=== PATIENT | female | born 1940 | race Caucasian/White ===

== ENCOUNTER 2017-05-30 09:06 | Emergency (ER) | payer MEDICARE ==
[2017-05-30 09:11] VITALS: RESP 18
[2017-05-30] MEDS ORDERED: SODIUM CHLORIDE 0.9% 500 ML IV STA (09:22)
--- NOTE | 2017-05-30 09:25 | ED ---
General Adult HPI - General Chief complaint: Abdominal Pain Stated complaint: gallbladder pain Time Seen by Provider: 05/30/17 09:13 Source: patient, RN notes reviewed Mode of arrival: ambulatory Limitations: no limitations - History of Present Illness Initial comments: Patient 76-year-old female presenting to the emergency room today with a chief complaint of right-sided abdominal/chest pain 2 days. Patient states that showed on night. She describes it as a sharp pain. States that she had some diarrhea. States appetite somewhat decreased noticed that yesterday pain was worse after eating. Also admits that it's worse with certain movements. Patient denies any injury or trauma to the area. Currently rates it a 08/02. Patient states is worried about her gallbladder. She denies any other complaints or symptoms. Patient denies any recent fever, chills, shortness of breath, back pain, numbness or tingling, dysuria or hematuria, constipation or diarrhea, headaches or visual changes, or any other complaints. - Related Data Home Medications Medication Instructions Recorded Confirmed Calcium Carbonate/Vitamin D3 1 tab PO DAILY 05/30/17 05/30/17 [Calcium 500-Vit D3 200 Tablet] Diclofenac Sodium [Voltaren] 100 mg PO DAILY 05/30/17 05/30/17 Allergies Allergy/AdvReac Type Severity Reaction Status Date / Time No Known Allergies Allergy Verified 05/30/17 12:50 Review of Systems ROS Statement: Those systems with pertinent positive or pertinent negative responses have been documented in the HPI. ROS Other: All systems not noted in ROS Statement are negative. Past Medical History Past Medical History: No Reported History History of Any Multi-Drug Resistant Organisms: None Reported Past Surgical History: Appendectomy, Hysterectomy, Joint Replacement, Orthopedic Surgery Past Psychological History: No Psychological Hx Reported Smoking Status: Former smoker Past Alcohol Use History: Occasional Past Drug Use History: None Reported General Exam - General Exam Comments Initial Comments: General: The patient is awake and alert, in no distress, and does not appear acutely ill. Eye: Pupils are equal, round and reactive to light, extra-ocular movements are intact. No nystagmus. There is normal conjunctiva bilaterally. No signs of icterus. Ears, nose, mouth and throat: There are moist mucous membranes and no oral lesions. Neck: The neck is supple, there is no tenderness or JVD. Cardiovascular: There is a regular rate and rhythm. No murmur, rub or gallop is appreciated. Tender to the anterior right-sided chest wall. Respiratory: Lungs are clear to auscultation, respirations are non-labored, breath sounds are equal. No wheezes, stridor, rales, or rhonchi. Gastrointestinal: Soft, non-distended, non-tender abdomen without masses or organomegaly noted. There is no rebound or guarding present. No CVA tenderness. Bowel sounds are unremarkable. Musculoskeletal: Normal ROM, no tenderness. Strength 5/5. Sensation intact. Pulses equal bilaterally 2+. Neurological: A&O x 3. CN II-XII intact, There are no obvious motor or sensory deficits. Coordination appears grossly intact. Speech is normal. Skin: Skin is warm and dry and no rashes or lesions are noted. Psychiatric: Cooperative, appropriate mood & affect, normal judgment. Limitations: no limitations Course Vital Signs 05/30/17 05/30/17 05/30/17 09:07 12:00 14:00 Temperature 97.5 F L 97.5 F L 97.8 F Pulse Rate 68 68 57 L Respiratory 18 18 18 Rate Blood Pressure 188/76 148/72 135/74 O2 Sat by Pulse 99 99 99 Oximetry EKG Findings - EKG Comments: EKG Findings:: EKG performed at 0924: Shows normal sinus rhythm at 71 beats per minute. MO interval 148. QRS 82. QT/QTc 430/467. No acute ST changes Medical Decision Making - Medical Decision Making Patient's cardiac enzymes were repeated here the emergency room and are negative. Case discussed with attending physician Dr. Chirinos who did discuss the case with Dr. Ruth covering for Dr. Benítez recommended repeating cardiac enzymes and negative patient could be discharged home. Patient will be discharged and advised follow-up in the office over the next 2 days. Advised return if any symptoms increase or worsen. She states understanding and is in agreement. - Lab Data Result diagrams: 05/30/17 09:45 05/30/17 09:45 Lab Results 05/30/17 05/30/17 05/30/17 Range/Units 09:45 09:45 09:45 WBC 8.9 (3.8-10.6) k/uL RBC 4.54 (3.80-5.40) m/uL Hgb 13.5 (11.4-16.0) gm/dL Hct 40.2 (34.0-46.0) % MCV 88.6 (80.0-100.0) fL MCH 29.6 (25.0-35.0) pg MCHC 33.5 (31.0-37.0) g/dL RDW 14.5 (11.5-15.5) % Plt Count 296 (150-450) k/uL Neutrophils % 72 % Lymphocytes % 17 % Monocytes % 6 % Eosinophils % 3 % Basophils % 1 % Neutrophils # 6.4 (1.3-7.7) k/uL Lymphocytes # 1.5 (1.0-4.8) k/uL Monocytes # 0.5 (0-1.0) k/uL Eosinophils # 0.3 (0-0.7) k/uL Basophils # 0.0 (0-0.2) k/uL PT (9.0-12.0) sec INR (<1.2) APTT (22.0-30.0) sec Sodium 140 (137-145) mmol/L Potassium 4.2 (3.5-5.1) mmol/L Chloride 104 (98-107) mmol/L Carbon Dioxide 26 (22-30) mmol/L Anion Gap 10 mmol/L BUN 29 H (7-17) mg/dL Creatinine 0.69 (0.52-1.04) mg/dL Est GFR (CKD-EPI)AfAm >90 (>60 ml/min/1.73 sqM) Est GFR (CKD-EPI)NonAf 84 (>60 ml/min/1.73 sqM) Glucose 90 (74-99) mg/dL Calcium 10.1 (8.4-10.2) mg/dL Total Bilirubin 0.5 (0.2-1.3) mg/dL AST 17 (14-36) U/L ALT 16 (9-52) U/L Alkaline Phosphatase 78 (38-126) U/L Total Creatine Kinase 37 (30-135) U/L CK-MB (CK-2) 0.8 (0.0-2.4) ng/mL CK-MB (CK-2) Rel Index 2.2 Troponin I <0.012 (0.000-0.034) ng/mL Total Protein 6.4 (6.3-8.2) g/dL Albumin 3.8 (3.5-5.0) g/dL Amylase 70 (30-110) U/L Lipase 136 (23-300) U/L Urine Color Urine Appearance (Clear) Urine pH (5.0-8.0) Ur Specific [place] (1.001-1.035) Urine Protein (Negative) Urine Glucose (UA) (Negative) Urine Ketones (Negative) Urine Blood (Negative) Urine Nitrite (Negative) Urine Bilirubin (Negative) Urine Urobilinogen (<2.0) mg/dL Ur Leukocyte Esterase (Negative) Urine RBC (0-5) /hpf Urine WBC (0-5) /hpf Ur Squamous Epith Cells (0-4) /hpf 05/30/17 05/30/17 05/30/17 Range/Units 09:45 11:28 13:23 WBC (3.8-10.6) k/uL RBC (3.80-5.40) m/uL Hgb (11.4-16.0) gm/dL Hct (34.0-46.0) % MCV (80.0-100.0) fL MCH (25.0-35.0) pg MCHC (31.0-37.0) g/dL RDW (11.5-15.5) % Plt Count (150-450) k/uL Neutrophils % % Lymphocytes % % Monocytes % % Eosinophils % % Basophils % % Neutrophils # (1.3-7.7) k/uL Lymphocytes # (1.0-4.8) k/uL Monocytes # (0-1.0) k/uL Eosinophils # (0-0.7) k/uL Basophils # (0-0.2) k/uL PT 9.7 (9.0-12.0) sec INR 1.0 (<1.2) APTT 24.3 (22.0-30.0) sec Sodium (137-145) mmol/L Potassium (3.5-5.1) mmol/L Chloride (98-107) mmol/L Carbon Dioxide (22-30) mmol/L Anion Gap mmol/L BUN (7-17) mg/dL Creatinine (0.52-1.04) mg/dL Est GFR (CKD-EPI)AfAm (>60 ml/min/1.73 sqM) Est GFR (CKD-EPI)NonAf (>60 ml/min/1.73 sqM) Glucose (74-99) mg/dL Calcium (8.4-10.2) mg/dL Total Bilirubin (0.2-1.3) mg/dL AST (14-36) U/L ALT (9-52) U/L Alkaline Phosphatase (38-126) U/L Total Creatine Kinase 32 (30-135) U/L CK-MB (CK-2) 0.6 (0.0-2.4) ng/mL CK-MB (CK-2) Rel Index 1.9 Troponin I <0.012 (0.000-0.034) ng/mL Total Protein (6.3-8.2) g/dL Albumin (3.5-5.0) g/dL Amylase (30-110) U/L Lipase (23-300) U/L Urine Color Light Yellow Urine Appearance Clear (Clear) Urine pH 7.0 (5.0-8.0) Ur Specific [place] 1.012 (1.001-1.035) Urine Protein Negative (Negative) Urine Glucose (UA) Negative (Negative) Urine Ketones Negative (Negative) Urine Blood Negative (Negative) Urine Nitrite Negative (Negative) Urine Bilirubin Negative (Negative) Urine Urobilinogen <2.0 (<2.0) mg/dL Ur Leukocyte Esterase Moderate H (Negative) Urine RBC 1 (0-5) /hpf Urine WBC 3 (0-5) /hpf Ur Squamous Epith Cells 2 (0-4) /hpf Disposition Clinical Impression: Chest wall pain Disposition: HOME SELF-CARE Condition: Good Instructions: Chest Pain (ED) Additional Instructions: Please follow-up with the family physician over the next 2 days. Please return here to the emergency room if any symptoms increase worsen or for any other concerns. Referrals: Gallo Benítez MD [Primary Care Provider] - 1-2 days Time of Disposition: 14:50
[2017-05-30 10:12] LABS: Basophils % (A) 1 %; Eosinophils # (A) 0.3 k/uL (0-0.7); Eosinophils % (A) 3 %; HCT 40.2 % (34.0-46.0); HGB 13.5 gm/dL (11.4-16.0); Lymphocytes # (A) 1.5 k/uL (1.0-4.8); Lymphocytes % (A) 17 %; MCH 29.6 pg (25.0-35.0); MCHC 33.5 g/dL (31.0-37.0); MCV 88.6 fL (80.0-100.0); Mean Platelet Volume 7.1; Monocytes # (A) 0.5 k/uL (0-1.0); Monocytes % (A) 6 %; Neutrophils # (A) 6.4 k/uL (1.3-7.7); Neutrophils % (A) 72 %; Platelet Count 296 k/uL (150-450); RBC 4.54 m/uL (3.80-5.40); RDW 14.5 % (11.5-15.5); WBC 8.9 k/uL (3.8-10.6)
[2017-05-30 10:21] LABS: Partial Thromboplastin Time 24.3 sec (22.0-30.0); Prothrombin Time 9.7 sec (9.0-12.0)
[2017-05-30 10:38] LABS: ALT 16 U/L (9-52); AST 17 U/L (14-36); Albumin 3.8 g/dL (3.5-5.0); Alkaline Phosphatase 78 U/L (38-126); Amylase 70 U/L (30-110); Anion Gap 10 mmol/L; Blood Urea Nitrogen 29 mg/dL (7-17); Calcium 10.1 mg/dL (8.4-10.2); Carbon Dioxide 26 mmol/L (22-30); Chloride 104 mmol/L (98-107); Glucose 90 mg/dL (74-99); Lipase 136 U/L (23-300); Potassium 4.2 mmol/L (3.5-5.1); Sodium 140 mmol/L (137-145); Total Bilirubin 0.5 mg/dL (0.2-1.3); Total Protein 6.4 g/dL (6.3-8.2)
[2017-05-30 10:40] LABS: Creatine Kinase 37 U/L (30-135)
[2017-05-30 10:52] LABS: Creatine Kinase MB 0.8 ng/mL (0.0-2.4); Troponin I <0.012 ng/mL (0.000-0.034)
--- NOTE | 2017-05-30 11:02 | XR ---
EXAMINATION TYPE: XR chest 2V DATE OF EXAM: 05/30/2017 HISTORY: pain. REFERENCE: Previous study dated 07/11/2014. FINDINGS: The lungs are clear. Pleural spaces are clear. Heart size is upper limits of normal. There is a hiatal hernia present behind the heart. IMPRESSION: 1. NO ACUTE INTRATHORACIC ABNORMALITY. 2. HIATAL HERNIA.
[2017-05-30 11:43] LABS: Appearance,Urine Clear (Clear); Bilirubin,Urine Negative (Negative); Blood,Urine Negative (Negative); Color,Urine Light Yellow; Glucose,Urine (UA) Negative (Negative); Ketones,Urine Negative (Negative); Leukocyte Esterase,Urine Moderate (Negative); Nitrite,Urine Negative (Negative); Protein,Urine Negative (Negative); RBC,Urine 1 /hpf (0-5); Specific Gravity,Urine 1.012 (1.001-1.035); Squamous Epithelial Cell,Urine 2 /hpf (0-4); Urobilinogen,Urine <2.0 mg/dL (<2.0); WBC,Urine 3 /hpf (0-5)
--- NOTE | 2017-05-30 11:59 | US ---
EXAMINATION TYPE: US abdomen limited DATE OF EXAM: 05/30/2017 COMPARISON: NONE CLINICAL HISTORY: Pain. Epigastric pain for 2 days. Nausea and diarrhea EXAM MEASUREMENTS: Liver Length: 15.1 cm Gallbladder Wall: 0.3 cm CBD: 0.5 cm Right Kidney: 8.8 x 3.8 x 5.0 cm Pancreas: Tail obscured by overlying bowel gas Liver: 2 cystic areas noted, largest = 0.9cm Gallbladder: no evidence of stones Evidence for sonographic Wilson's sign: no CBD: wnl Right Kidney: lower limits of normal in size Limited views of the pancreas are unremarkable. The liver is normal in size. There are 2 cystic lesions noted within the right lobe of the liver. The largest measures 9 mm. The gallbladder is unremarkable. The gallbladder wall measures 3 mm. The distal common hepatic duct m easures 5 mm. There is no sonographic Wilson's sign. Right kidney is somewhat small. There is no evidence of hydronephrosis. The intrahepatic IVC is normal. IMPRESSION: 1. CYSTIC CHANGE WITHIN THE LIVER. 2. THE RIGHT KIDNEY IS SOMEWHAT SMALL. THIS MAY REFLECT PATIENT SIZE.
[2017-05-30] MEDS ORDERED: ASPIRIN 81 MG PO STA (12:06)
[2017-05-30] MEDS ORDERED: NITROGLYCERIN SL TABS 0.4 MG TAB SUBLINGUAL STA (12:06)
[2017-05-30 14:00] LABS: Creatine Kinase 32 U/L (30-135)
[2017-05-30 14:12] LABS: Troponin I <0.012 ng/mL (0.000-0.034)
[2017-05-30 14:18] LABS: Creatine Kinase MB 0.6 ng/mL (0.0-2.4)
[2017-05-30 15:30] VITALS: BP 130/77; PULSE 64; TEMP 97.7
== END 2017-05-30 15:31 | disposition home or self-care (01) ==
LOC: EC 09:06
DX: R07.89 Other chest pain (principal); R10.9 Unspecified abdominal pain; Z90.49 Acquired absence of other specified parts of digestive tract; Z87.891 Personal history of nicotine dependence; Z79.1 Long term (current) use of non-steroidal anti-inflammatories (NSAID); Z53.20 Procedure and treatment not carried out because of patient's decision for unspecified reasons
CPT/HCPCS: 36415; 71046; 76705; 80053; 81001; 82150; 82550; 82553; 83690; 84484; 85025; 85610; 85730; 93005; 99284

== ENCOUNTER → 2019-05-10 | Outpatient (CLI) | payer MEDICARE ==
[2019-05-10 18:39] LABS: Protein, Total 6.2 g/dL (6.2-8.2)
[2019-05-10 19:01] LABS: Rheumatoid Factor, Qnt 5 IU/mL (0-15)
[2019-05-10 19:07] LABS: Hemoglobin A1C 5.7 % (4.0-6.0)
[2019-05-11 13:36] LABS: Gamma Globulin 0.76 g/dL (0.70-1.50)
== END | disposition home or self-care (01) ==
LOC: LABWHC1 11:27
PROVIDERS: ATTEND Psychiatry & Neurology Neurology
DX: G62.9 Polyneuropathy, unspecified (principal); R73.9 Hyperglycemia, unspecified; M79.673 Pain in unspecified foot; R20.1 Hypoesthesia of skin; E34.9 Endocrine disorder, unspecified
CPT/HCPCS: 36415; 82607; 83036; 84165; 84207; 84443; 85652; 86038; 86431; 86618

== ENCOUNTER → 2020-04-13 | Outpatient (CLI) | payer MEDICARE ==
--- NOTE | 2020-04-13 16:01 | US ---
EXAMINATION TYPE: US venous doppler duplex LE RT DATE OF EXAM: 04/13/2020 3:26 PM COMPARISON: NONE CLINICAL HISTORY: M25.571 Pain In right ankle. I80.9 Phlabitis. Pt states right leg pain SIDE PERFORMED: Right TECHNIQUE: The lower extremity deep venous system is examined utilizing real time linear array sonog adama with graded compression, doppler sonography and color-flow sonography. VESSELS IMAGED: Common Femoral Vein Deep Femoral Vein Greater Saphenous Vein * Femoral Vein Popliteal Vein Small Saphenous Vein * Proximal Calf Veins (* superficial vessels) Right Leg: Negative for DVT Results called to [facility] at [facility] at time of exam IMPRESSION: 1. Right lower extremity ultrasound negative for deep venous thrombosis.
== END | disposition home or self-care (01) ==
LOC: RADUSWWP 15:09
PROVIDERS: ATTEND Orthopaedic Surgery Sports Medicine
DX: I80.201 Phlebitis and thrombophlebitis of unspecified deep vessels of right lower extremity (principal); M76.821 Posterior tibial tendinitis, right leg

== ENCOUNTER → 2020-12-24 | Outpatient (CLI) | payer MEDICARE ==
--- NOTE | 2020-12-24 15:45 | XR ---
Cervical spine HISTORY: Stiffness and pain 5 views of the cervical spine There is multilevel facet arthropathy. Multilevel foraminal encroachment is present to include C3-4, C4-5, C5-6 and C6-7 bilaterally. There is multilevel spondylosis. Anterolisthesis grade 1 C4-5, there is loss of disc height at intervertebral levels C3-4, C5-6 and C6-7. Prevertebral soft tissues are n ormal. Bone mineralization is reduced. Cervical vertebral bodies show preserved height. IMPRESSION: Degenerative disc disease, facet arthropathy, osteopenia and multilevel foraminal encroac hment.
== END | disposition home or self-care (01) ==
LOC: RADXRMAIN 12:54
PROVIDERS: ATTEND Internal Medicine Geriatric Medicine
DX: M50.323 Other cervical disc degeneration at C6-C7 level (principal); M47.812 Spondylosis without myelopathy or radiculopathy, cervical region
CPT/HCPCS: 72050

== ENCOUNTER → 2022-02-27 | Outpatient (CLI) | payer MEDICARE ==
--- NOTE | 2022-02-27 16:03 | BD ---
EXAMINATION TYPE: Axial Bone Density DATE OF EXAM: 02/27/2022 COMPARISON: 12/19/2015 CLINICAL HISTORY: 81 years year old Female. ICD-10 CODE: M81.0 AGE RELATED OSTEOPOROSIS Height: 61" Weight: 181.3 FRAX RISK QUESTIONS: Alcohol (3 or more units per day): NO Family History (Parent hip fracture): NO Glucocorticoids (More than 3mos): NO (Ex: prednisone, prednisolone, methylprednisolone, dexamethasone, and hydrocortisone). History of Fracture in Adulthood: YES, RIGHT HAND Secondary Osteoporosis: 1. Type 1 Diabetes: NO 2. Hyperthyroidism: NO 3. Menopause before 45: NO 4. Malnutrition: NO 5. Chronic liver disease: NO Rheumatoid Arthritis: NO Current Tobacco Use: NO RISK FACTORS HISTORY OF: Hip Fracture (Right/Left): NO Spine Fracture: NO History of Wrist Fracture: NO Surgery to Spine/Hip(right/left)/Wrist (right/left): NO Family History of Osteoporosis: NO Active: YES Diet low in dairy products/other sources of calcium: YES Postmenopausal woman: YES Lost more than 2 inches in height since high school: YES Frequent falls: NO Poor Health: NO, GOOD Hyperparathyroidism: NO Adrenal Insufficiency: NO MEDICATIONS: Prednisone or other steroids: NO Thyroid Medications: NO Osteoporosis Medications: NO Additional Medications: CALCIUM WITH D, REFLUX MEDS, NEUROPATHY MEDS, VARIOUS VITAMINS ONCE A WEEK Additional History: NONE EXAM MEASUREMENTS: Bone mineral densitometry was performed using the [employer] System. Bone mineral density as measured about the Lumbar spine is: ----- L1-L4(G/cm2): 1.563 T Score Values are as follows: ----- L1: 3.9 ----- L2: 2.3 ----- L3: 2.5 ----- L4: 3.5 ----- L1-L4: 3.2 Bone mineral density has: DECREASED -9.5% since study of: 12/19/2015 Bone mineral density about the R hip (g/cm2): 0.781 Bone mineral density about the L hip (g/cm2): 0.827 T Score values are as follows: -----R Neck: -1.9 -----L Neck: -1.5 -----R Total: -1.0 -----L Total: -0.7 Bone mineral density has: DECREASED -6.9% since study of: 12/19/2015 FRAX%s: The graph provided illustrates a 20.3% chance for a major osteoporotic fx and a 5.3% chance f or the hips probability for fx in 10 years time. IMPRESSION: Osteopenia (T Score between -2.5 and -1). There is slightly increased risk of fracture and the patient may be considered for treatment. Re-Screen 2-5 years. NOTE: T-SCORE=SD OF THE YOUNG ADULT MEAN.
== END | disposition home or self-care (01) ==
LOC: RADBDWWP 10:22
PROVIDERS: ATTEND Internal Medicine Geriatric Medicine
DX: M81.0 Age-related osteoporosis without current pathological fracture (principal); M85.89 Other specified disorders of bone density and structure, multiple sites
CPT/HCPCS: 77080